=== PATIENT | female | born 1935 | race Caucasian/White ===

== ENCOUNTER 2017-08-29 11:58 | Day surgery (SDC) | payer MEDICARE ==
--- NOTE | 2017-08-29 14:17 | Operative Note ---
Colonoscopy ([place]) Procedure date: 08/29/17 Date of : 39 Procedure:Colonoscopy Colonoscopy with submucosal injection and cold and hot snare polypectomy Indications: Mrs. Hernandez is an 82-year-old female who is here for diagnostic colonoscopy secondary to a positive Cologuard thecal test. The patient's last colonoscopy was in August 2007 at which time 2 diminutive polyps (tubular adenomas 2) were removed. She reports no abdominal pain, weight loss, change in her bowel habits or rectal bleeding. She reports no family history of colon cancer. Performing Provider: Giovanni Keene MD Referrring Provider: Trang Wright M.D. Sedation: Fentanyl 200 mg IV/Versed 11 mg IV Procedure: Prior to the procedure, a history and physical exam was performed, and patient medications and allergies were reviewed. The risks and benefits of the procedure and the sedation options and risks were discussed with the patient. All questions were answered and informed consent was obtained. Patient identification and proposed procedure were verified by the physician and the nurse. The patient was placed in a left lateral decubitus position. Throughout the procedure, the patient's blood pressure, pulse, and oxygen saturations were monitored continuously. Findings: On digital rectal examination there was normal rectal tone. There were no external hemorrhoids. The colonoscope was introduced through the anal canal to the rectum and advanced to the cecum. The ileocecal valve and appendiceal orifice were identified. The scope was advanced a short distance into the ileum which appeared grossly normal. The scope was then withdrawn into the colon. There was a diminutive polyp in the cecum that was 5 mm removed via cold snare polypectomy. Within the ascending colon there was an elongated 22 mm polyp that was raised using cornstarch submucosally with an injector needle catheter and this was then removed via snare cautery. There were 4 additional polyps ( ascending 2 and transverse 2) that were between 5 and 7 mm in size and were removed via cold snare polypectomy. There were scattered diverticuli throughout the descending and sigmoid colon (LEFT colon). The rectum itself was normal. Upon retroflexion within the rectum there were grade 1 internal hemorrhoids. Impressions: 1. Large sessile 22 mm ascending polyp status post submucosal raising and snare cautery removal 2. 5 additional diminutive colonic polyps 3. Left-sided diverticulosis 4. Grade 1 internal hemorrhoids Recommendations: I will follow up the polyp pathology and recommend repeat colonoscopy again in 1 -2 years based upon the polyp histology. I would encourage fiber supplementation on a long-term daily maintenance basis. Complications: None EBL (ml): 0 at [id number]
[2017-08-29 16:38] VITALS: BP 164/81
== END 2017-08-29 15:25 | disposition home or self-care (01) ==
LOC: SDC 11:58
PROVIDERS: Internal Medicine Gastroenterology
PROC: 3E0H8GC Introduction of Other Therapeutic Substance into Lower GI, Via Natural or Artificial Opening Endoscopic (ICD-10-PCS; 2017-08-29)
PROC: 0DBK8ZX Excision of Ascending Colon, Via Natural or Artificial Opening Endoscopic, Diagnostic (ICD-10-PCS; 2017-08-29)
PROC: 0DBL8ZX Excision of Transverse Colon, Via Natural or Artificial Opening Endoscopic, Diagnostic (ICD-10-PCS; 2017-08-29)
PROC: 0DBH8ZX Excision of Cecum, Via Natural or Artificial Opening Endoscopic, Diagnostic (ICD-10-PCS; 2017-08-29)
PROC: 0DBK8ZX Excision of Ascending Colon, Via Natural or Artificial Opening Endoscopic, Diagnostic (ICD-10-PCS; principal; 2017-08-29 13:00)
DX: D12.2 Benign neoplasm of ascending colon (principal); D12.0 Benign neoplasm of cecum; D12.3 Benign neoplasm of transverse colon; K57.30 Diverticulosis of large intestine without perforation or abscess without bleeding; K64.0 First degree hemorrhoids; Z86.010 Personal history of colon polyps